=== PATIENT | male | born 1995 | race Caucasian/White ===

== ENCOUNTER 2024-03-13 17:34 | Emergency (ER) | payer MEDICAID ==
[~2024-03-13] VITALS: Ht 172.7 cm; Wt 90.7 kg
[2024-03-13 17:38] VITALS: BP 105/61; PULSE 101; RESP 20; TEMP 98.2; O2SAT 96
[2024-03-13 18:00] VITALS: O2SAT 97
[2024-03-13] MEDS ORDERED: THIAMINE 200 MG/2 ML VIAL IV ONE (18:35)
[2024-03-13] MEDS: NACL 0.9% 2,000 ML IV ONE (18:44)
[2024-03-13 19:21] LABS: BASOPHILS # (AUTO) 0.1 K/uL (0.00-0.22); BASOPHILS % (AUTO) 0.7 % (0.0-2.0); EOSINOPHILS # (AUTO) 0.1 K/uL (0-0.4); EOSINOPHILS % (AUTO) 1.4 % (0.0-4.0); HEMATOCRIT 38.6 % (36-52); HEMOGLOBIN 12.7 g/dL (12.0-18.0); LYMPHOCYTES # (AUTO) 3.4 K/uL (2.0-11.5); LYMPHOCYTES % (AUTO) 33.6 % (20.5-51.1); MEAN CORPUSCULAR HEMOGLOBIN 28 pg (27-31); MEAN CORPUSCULAR HGB CONC 33 g/dL (33-37); MEAN CORPUSCULAR VOLUME 84.2 fL (80-94); MONOCYTES # (AUTO) 0.6 K/uL (0.8-1.0); MONOCYTES % (AUTO) 6.1 % (1.7-9.3); NEUTROPHILS # (AUTO) 5.8 K/uL (1.8-7.7); NEUTROPHILS % (AUTO) 58.2 % (42.2-75.2); PLATELET COUNT (AUTO) 277 K/uL (140-450); RED BLOOD CELL COUNT(AUTO) 4.58 MIL/uL (4.20-6.10); RED CELL DISTRIBUTION WIDTH 14.5 % (11.6-13.7)
[2024-03-13] MEDS: THIAMINE 200 MG/2 ML VIAL IM ONE (19:29)
[2024-03-13 19:46] LABS: ALBUMIN 3.4 g/dL (3.4-5.0); ANION GAP 10.5 (8-16); CALCIUM 7.7 mg/dL (8.5-10.1); CARBON DIOXIDE 27.9 mmol/L (21-32); CREATININE 1.1 mg/dL (0.6-1.3); POTASSIUM 3.4 mmol/L (3.5-5.1); TOTAL BILIRUBIN 0.2 mg/dL (0.0-1.0); TOTAL PROTEIN, SERUM 6.4 g/dL (6.4-8.2)
[2024-03-14 01:54] VITALS: BP 111/64; PULSE 74; RESP 16; TEMP 98.2; O2SAT 95
== END 2024-03-14 01:54 | disposition home or self-care (01) ==
LOC: MED 17:34
DX: F10.129 Alcohol abuse with intoxication, unspecified (principal); F15.10 Other stimulant abuse, uncomplicated; Y90.8 Blood alcohol level of 240 mg/100 ml or more
CPT/HCPCS: 36415; 80053; 83690; 85025; 96361; 96374; 99285; G0482; J3411; J7030